=== PATIENT | female | born 1975 | race American Indian/Alaskan Native ===

== ENCOUNTER 2016-12-30 03:52 | Emergency (ER) | payer OTHER ==
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
[2016-12-30] MEDS ORDERED: ATIVAN PO ONE (08:01)
[2016-12-30] MEDS ORDERED: MOTRIN PO ONE ×2 (08:01→10:18)
[2016-12-30 08:21] LABS: Urine Drugs of Abuse Note Disclamer
[2016-12-30 08:40] LABS: Bacteria,Urine 1+ /HPF (Negative); Bilirubin,Urine NEG (Negative); Blood,Urine NEG (Negative); Ketones,Urine NEG (Negative); Leukocyte Esterase,Urine NEG (Negative); Nitrite,Urine NEG (Negative); Protein,Urine <15 mg/dL mg/dL (Negative); RBC,Urine < 1.0 /HPF (0.0-6.0); Urobilinogen,Urine < 2.0 mg/dL (<2.0); WBC,Urine < 1.0 /HPF (0.0-6.0)
[2016-12-30] MEDS ORDERED: ATIVAN ONE (10:18)
[2016-12-30] MEDS ORDERED: GEODON IM ONE (10:28)
[2016-12-30] MEDS ORDERED: WATER FOR INJ (PF) 10 ML ONE (11:11)
[2016-12-30] MEDS ORDERED: BENADRYL ONE (11:37)
[2016-12-30] MEDS ORDERED: BENADRYL IM ONE (11:45)
[2016-12-30] MEDS ORDERED: ATIVAN IM ONE ×2 (11:52→12:00)
[2016-12-30 12:03] LABS: Basophils % (Auto) 1.1 % (0.0-1.8); Eosinophils % (Auto) 2.8 % (0.0-4.3); Hematocrit 42.7 % (30.3-42.9); Hemoglobin 14.3 gm/dl (10.1-14.3); Mean Corpuscular HGB Conc 34 % (30-34); Mean Corpuscular Hemoglobin 28 pg (28-32); Mean Corpuscular Volume 84 fl (79-97); Platelet Count 173 K/mm3 (140-440); Red Blood Count 5.07 M/mm3 (3.65-5.03); Red Cell Distribution Width 14.3 % (13.2-15.2); White Blood Count 8.7 K/mm3 (4.5-11.0)
[2016-12-30 12:16] LABS: Anion Gap 20 mmol/L; Blood Urea Nitrogen 13 mg/dL (7-17); Carbon Dioxide 21 mmol/L (22-30); Chloride 101.8 mmol/L (98-107); Glucose 110 mg/dL (65-100); Potassium 4.3 mmol/L (3.6-5.0); Sodium 138 mmol/L (137-145)
[2016-12-30 12:18] LABS: Alanine Aminotransferase 11 units/L (7-56); Albumin 4.3 g/dL (3.9-5); Albumin/Globulin Ratio 1.5 %; Alkaline Phosphatase 69 units/L (35-129); Total Protein 7.2 g/dL (6.3-8.2)
[2016-12-30 12:26] LABS: Bilirubin,Direct < 0.2 mg/dL (0-0.2); Bilirubin,Indirect 0.3 mg/dL
[2016-12-30] MEDS ORDERED: GEODON IM PRN (12:39)
[2016-12-30] MEDS ORDERED: ALUM-MAG HYDROX-SIMETH 200-200-20MG/5ML PO PRN (12:41)
[2016-12-30] MEDS ORDERED: MILK OF MAGNESIA PO PRN (12:41)
[2016-12-30] MEDS ORDERED: TYLENOL PO PRN (12:41)
[2016-12-30] MEDS: GEODON PO SCH (21:43)
[2016-12-31 08:29] VITALS: BP 127/81
[2016-12-31] MEDS: GEODON PO SCH (09:33)
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
--- NOTE | 2016-12-31 12:42 | Emergency Department Report ---
Blank Doc - Documentation Documentation: Patient has been evaluated by psychiatry and recommendations are to rescind the 1013. Patient will be discharged home at this time to follow-up with the [facility] for outpatient psychiatry services. Per request, the patient will be started on Zoloft 50 mg by mouth every morning.
== END 2016-12-31 13:42 | disposition home or self-care (01) ==
LOC: ED 03:52 → EEVIPCON 03:52 → ED 12-31 13:42
DX: F23 Brief psychotic disorder (principal)
CPT/HCPCS: 36415; 80048; 80074; 80307; 81001; 81025; 83735; 85025; 96372; 99284; G0480; J1200; J2060; J3486; 80320